=== PATIENT | female | born 1975 | race American Indian/Alaskan Native ===

== ENCOUNTER 2017-05-06 05:31 | Emergency (ER) | payer SELFPAY ==
[2017-05-06 05:42] VITALS: BP 140/98
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
[2017-05-06 07:04] LABS: ACETAMINOPHEN 0 ug/mL (10-30)
== END 2017-05-06 09:05 ==
LOC: JD.ED 05:31
DX: F32.9 Major depressive disorder, single episode, unspecified (principal); F10.10 Alcohol abuse, uncomplicated; Z88.0 Allergy status to penicillin; Z79.899 Other long term (current) drug therapy; Z91.5 Personal history of self-harm
CPT/HCPCS: 36415; 80053; 80306; 81001; 81025; 84443; 85025; 85610; 93005; 99285; G0480